=== PATIENT | female | born 1950 | race Caucasian/White ===

== ENCOUNTER → 2017-07-06 | Outpatient (CLI) | payer MEDICARE, OTHER ==
--- NOTE | 2017-07-06 10:28 | REPMRS ---
Patient History The patient states she had a clinical breast exam in 2015. Patient is postmenopausal. No known family history of cancer. Took hormonal contraceptives for 1 month. Took unspecified hormones for 10 years. Digital Mammo Screening Bilat: July 06, 2017 - Exam #: [id number] Bilateral CC and MLO view(s) were taken. Technologist: Susie Rodríguez, Technologist Prior study comparison: July 05, 2016, bilateral digital mammo screening bilat performed at [facility]. July 04, 2015, digital bilateral screening mammo, performed at [facility]. FINDINGS: There are scattered fibroglandular densities. There has been no change in the appearance of the mammogram from the prior studies. There is a mild amount of residual fibroglandular tissue which is fairly symmetric. There is no interval development of dominant mass, architectural distortion, or clustered microcalcification suggestive of malignancy. ASSESSMENT: BI-RADS/ACR category 1 mammogram. Negative. Recommendation Routine screening mammogram in 1 year (for women over age 40). This mammogram was interpreted with the aid of an FDA-approved computer-aided dectection system. Electronically Signed By: Michael Case MD 07/06/17 1786
== END ==
LOC: M RAD 09:21
PROVIDERS: ATTEND Family Medicine
DX: Z12.31 Encounter for screening mammogram for malignant neoplasm of breast (principal); Z92.0 Personal history of contraception

== ENCOUNTER → 2017-10-24 | Outpatient (CLI) | payer MEDICARE, OTHER ==
[2017-10-24 13:22] LABS: MEAN CORPUSCULAR HEMOGLOBIN 30.2 pg (27.0-33.0); MEAN CORPUSCULAR HGB CONC 31.4 g/dl (32.0-36.5); MEAN CORPUSCULAR VOLUME 96.3 fl (80.0-96.0); PLATELET COUNT, AUTOMATED 261 10^3/uL (150-450); RED CELL DISTRIBUTION WIDTH 13.1 % (11.5-14.5); WHITE BLOOD COUNT 5.4 10^3/uL (4.0-10.0)
[2017-10-24 13:51] LABS: ALBUMIN 3.7 GM/DL (3.2-5.2); ALBUMIN/GLOBULIN RATIO 1.12 (1.00-1.93); ALKALINE PHOSPHATASE 60 U/L (45-117); ALT/SGPT 22 U/L (12-78); ANION GAP 7 MEQ/L (8-16); AST/SGOT 18 U/L (7-37); BILIRUBIN,TOTAL 0.4 MG/DL (0.2-1.0); BLOOD UREA NITROGEN 13 MG/DL (7-18); CALCIUM LEVEL 9.4 MG/DL (8.8-10.2); CARBON DIOXIDE LEVEL 30 MEQ/L (21-32); CHLORIDE LEVEL 106 MEQ/L (98-107); CHOLESTEROL LEVEL 188 MG/DL (<200); CREATININE FOR GFR 0.79 MG/DL (0.55-1.02); FREE T4 1.05 NG/DL (0.76-1.46); GLOMERULAR FILTRATION RATE > 60.0 (>45); GLUCOSE, FASTING 84 MG/DL (80-110); POTASSIUM SERUM 4.4 MEQ/L (3.5-5.1); SODIUM LEVEL 143 MEQ/L (136-145); TRIGLYCERIDES LEVEL 128 MG/DL (<150)
== END ==
LOC: M WUC 08:49
PROVIDERS: ATTEND Family Medicine
DX: K22.70 Barrett's esophagus without dysplasia (principal); E78.2 Mixed hyperlipidemia; E04.9 Nontoxic goiter, unspecified

== ENCOUNTER → 2018-01-24 | Outpatient (CLI) | payer MEDICARE, OTHER ==
[2018-01-24 14:38] LABS: ALBUMIN 3.9 GM/DL (3.2-5.2); ALKALINE PHOSPHATASE 64 U/L (45-117); ALT/SGPT 19 U/L (12-78); ANION GAP 7 MEQ/L (8-16); AST/SGOT 16 U/L (7-37); BILIRUBIN,TOTAL 0.5 MG/DL (0.2-1.0); BLOOD UREA NITROGEN 16 MG/DL (7-18); CALCIUM LEVEL 9.3 MG/DL (8.8-10.2); CARBON DIOXIDE LEVEL 31 MEQ/L (21-32); CHLORIDE LEVEL 106 MEQ/L (98-107); CHOLESTEROL LEVEL 133 MG/DL (<200); CHOLESTEROL RISK RATIO 2.829 (<5); CREATININE FOR GFR 0.88 MG/DL (0.55-1.30); GLOMERULAR FILTRATION RATE > 60.0 (>45); GLUCOSE, FASTING 80 MG/DL (70-100); HDL CHOLESTEROL 47 MG/DL (>40); LDL CHOLESTEROL 67.2 MG/DL (<100); NON-HDL-C 86 MG/DL; POTASSIUM SERUM 4.3 MEQ/L (3.5-5.1); SODIUM LEVEL 144 MEQ/L (136-145); TOTAL PROTEIN 6.9 GM/DL (6.4-8.2); TRIGLYCERIDES LEVEL 94 MG/DL (<150)
== END ==
LOC: M SMT 08:36
DX: E78.2 Mixed hyperlipidemia (principal)
CPT/HCPCS: 80053

== ENCOUNTER 2018-03-08 08:18 | Day surgery (SDC) | payer MEDICARE, OTHER ==
[~2018-03-08 08:18] MED LIST: LIDOCAINE 2% MDV 20 ML VIAL As Ordered; PROPOFOL 200 MG/20 ML VIAL As Ordered
[2018-03-08] MEDS: NS 1,000 ML IV (08:30)
== END 2018-03-08 10:31 | disposition home or self-care (01) ==
LOC: M OPP 08:18
DX: Z12.11 Encounter for screening for malignant neoplasm of colon (principal); Z86.010 Personal history of colon polyps; K64.0 First degree hemorrhoids; R12 Heartburn; K22.70 Barrett's esophagus without dysplasia; K22.8 Other specified diseases of esophagus; E78.5 Hyperlipidemia, unspecified; K57.30 Diverticulosis of large intestine without perforation or abscess without bleeding; K21.9 Gastro-esophageal reflux disease without esophagitis; G43.909 Migraine, unspecified, not intractable, without status migrainosus; R42 Dizziness and giddiness; Z88.5 Allergy status to narcotic agent; Z88.2 Allergy status to sulfonamides; Z88.0 Allergy status to penicillin; Z79.899 Other long term (current) drug therapy
CPT/HCPCS: G0105

== ENCOUNTER → 2018-07-07 | Outpatient (CLI) | payer MEDICARE, OTHER | LOC: M RAD 09:08 | DX: Z12.31 Encounter for screening mammogram for malignant neoplasm of breast (principal) | CPT/HCPCS: 77067 ==

== ENCOUNTER → 2018-11-27 | Outpatient (CLI) | payer MEDICARE, OTHER ==
[~2018-11-27] MED LIST changes: +ATOR1TAB21 PO; +CALC1TAB21 PO; +DERM0.014 AD; +FLUTISP; +IMIT50TA PO; -LIDOCAINE 2% MDV 20 ML VIAL As Ordered; +MUCI600T31 PO; +OMEP40CA2 PO; -PROPOFOL 200 MG/20 ML VIAL As Ordered; +VITA100067 PO
[2018-11-27 12:57] LABS: HEMATOCRIT 44.8 % (36.0-47.0); HEMOGLOBIN 14.2 g/dl (12.0-15.5); MEAN CORPUSCULAR HGB CONC 31.7 g/dl (32.0-36.5); MEAN CORPUSCULAR VOLUME 94.7 fl (80.0-96.0); PLATELET COUNT, AUTOMATED 264 10^3/uL (150-450); RED BLOOD COUNT 4.73 10^6/uL (4.00-5.40); WHITE BLOOD COUNT 5.9 10^3/uL (4.0-10.0)
[2018-11-27 13:29] LABS: ALBUMIN 3.7 GM/DL (3.2-5.2); ALT/SGPT 24 U/L (12-78); BILIRUBIN,TOTAL 0.5 MG/DL (0.2-1.0); BLOOD UREA NITROGEN 14 MG/DL (7-18); CALCIUM LEVEL 9.7 MG/DL (8.8-10.2); CARBON DIOXIDE LEVEL 29 MEQ/L (21-32); CHLORIDE LEVEL 104 MEQ/L (98-107); CHOLESTEROL LEVEL 203 MG/DL (<200); CREATININE FOR GFR 0.78 MG/DL (0.55-1.30); FREE T4 1.02 NG/DL (0.76-1.46); GLOMERULAR FILTRATION RATE > 60.0 (>45); GLUCOSE, FASTING 84 MG/DL (70-100); HDL CHOLESTEROL 51 MG/DL (>40); LDL CHOLESTEROL 126 MG/DL (<100); NON-HDL-C 152 MG/DL; SODIUM LEVEL 143 MEQ/L (136-145); THYROID STIMULATING HORMONE 0.988 uIU/ML (0.358-3.740); TOTAL PROTEIN 7.4 GM/DL (6.4-8.2); TRIGLYCERIDES LEVEL 128 MG/DL (<150)
== END ==
LOC: M WUC 09:55
PROVIDERS: ATTEND Family Medicine
DX: K22.70 Barrett's esophagus without dysplasia (principal); E78.2 Mixed hyperlipidemia; E04.9 Nontoxic goiter, unspecified

== ENCOUNTER → 2019-07-11 | Outpatient (CLI) | payer MEDICARE, OTHER ==
--- NOTE | 2019-07-11 12:10 | REP ---
BILATERAL SCREENING DIGITAL MAMMOGRAM WITH 3D TOMOSYNTHESIS: There are no palpable abnormalities or other breast complaints. The the patient states she is not had a clinical breast examination in over a year. The Tyrer-Cuzick score is: 4.1% . Comparison is 07/03/2014. The breasts are almost entirely fatty.. There is no dominant mass, micro calcific cluster or architectural distortion that would indicate malignancy. There are no additional findings on 3D tomosynthesiss. There is no change from the prior study. Impression: BIRADS/ACR category 1 mammogram. Negative. Recommendation: Routine annual screening mammography. This mammogram was interpreted with the aid of a FDA approved computer-aided detection system. A. Negative mammogram reports should not delay biopsy if a dominant or clinically suspicious mass is present. B. Not all breast cancers are identified by mammography or tomosynthesis. C. Adenosis and dense breasts may obscure an underlying neoplasm. Patient letter M1. Electronically Signed by Michael Garner MD 07/11/2019 10:04 A
== END ==
LOC: M RAD 09:08
PROVIDERS: ATTEND Family Medicine
DX: Z12.31 Encounter for screening mammogram for malignant neoplasm of breast (principal)

== ENCOUNTER 2019-11-29 13:27 | Emergency (ER) | payer MEDICARE, OTHER ==
[~2019-11-29] VITALS: Ht 162.6 cm; Wt 76.4 kg
[~2019-11-29 13:27] MED LIST changes: -OMEP40CA2 PO; +OMEP40CA97 PO
[2019-11-29] MEDS ORDERED: IBUPROFEN 600 MG TAB PO ONE (14:00)
--- NOTE | 2019-11-29 14:42 | REP ---
Sacrum and coccyx: Three views. History: Injury in a fall. Findings: AP, tube angled, and lateral views are obtained. Image quality is inhibited some degree by patient body habitus. No sacral or coccygeal fracture or displacement is seen. The presacral soft tissues do not appear to be abnormally widened. SI joints are unremarkable. Impression: No fracture seen. Electronically Signed by Tirso Oliva MD 11/29/2019 02:33 P
--- NOTE | 2019-11-29 14:52 | REP ---
Left knee: Five views. History: Injury in a fall. Findings: Five views of the left knee demonstrate mild inferior and superior pole articular spurring of the patella. There is subcortical cyst formation at the upper pole of the patella at the cortical surface. No fracture or subluxation is seen. Impression: There is subcortical cyst formation in the articular margin of the upper pole the patella. Patellar spurring. No fracture or subluxation is seen. Electronically Signed by Tirso Oliva MD 11/29/2019 02:43 P
--- NOTE | 2019-11-29 14:55 | REP ---
LEFT ELBOW SERIES: Four views. HISTORY: Injury in a fall. FINDINGS: Four views of the left elbow demonstrate normal bones, joints, and soft tissues. No fracture or subluxation is seen. IMPRESSION: Negative left elbow radiographs. Electronically Signed by Tirso Oliva MD 11/29/2019 03:13 P
[2019-11-29 14:57] VITALS: BP 130/85
== END 2019-11-29 15:03 | disposition home or self-care (01) ==
LOC: M ED 13:27
DX: S30.0XXA Contusion of lower back and pelvis, initial encounter (principal); S50.02XA Contusion of left elbow, initial encounter; S80.02XA Contusion of left knee, initial encounter; W00.0XXA Fall on same level due to ice and snow, initial encounter; Y92.238 Other place in hospital as the place of occurrence of the external cause; K21.9 Gastro-esophageal reflux disease without esophagitis; Z79.899 Other long term (current) drug therapy; Z88.0 Allergy status to penicillin; Z88.2 Allergy status to sulfonamides; Z88.8 Allergy status to other drugs, medicaments and biological substances

== ENCOUNTER → 2019-12-04 | Outpatient (CLI) | payer MEDICARE, OTHER ==
[2019-12-04 08:43] LABS: HEMATOCRIT 40.6 % (36.0-47.0); MEAN CORPUSCULAR HEMOGLOBIN 27.2 pg (27.0-33.0); MEAN CORPUSCULAR HGB CONC 29.6 g/dl (32.0-36.5); MEAN CORPUSCULAR VOLUME 92.1 fl (80.0-96.0); PLATELET COUNT, AUTOMATED 319 10^3/uL (150-450); RED BLOOD COUNT 4.41 10^6/uL (4.00-5.40); WHITE BLOOD COUNT 5.4 10^3/uL (4.0-10.0)
[2019-12-04 09:13] LABS: ALBUMIN 3.8 GM/DL (3.2-5.2); ALT/SGPT 22 U/L (12-78); BILIRUBIN,TOTAL 0.4 MG/DL (0.2-1.0); BLOOD UREA NITROGEN 14 MG/DL (7-18); CALCIUM LEVEL 9.3 MG/DL (8.8-10.2); CARBON DIOXIDE LEVEL 33 MEQ/L (21-32); CHLORIDE LEVEL 108 MEQ/L (98-107); CHOLESTEROL LEVEL 166 MG/DL (<200); CHOLESTEROL RISK RATIO 3.192 (<5); CREATININE FOR GFR 0.91 MG/DL (0.55-1.30); FREE T4 1.39 NG/DL (0.76-1.46); GLOMERULAR FILTRATION RATE > 60.0 (>39); GLUCOSE, FASTING 79 MG/DL (70-100); HDL CHOLESTEROL 52 MG/DL (>40); LDL CHOLESTEROL 98 MG/DL (<100); NON-HDL-C 114 MG/DL; POTASSIUM SERUM 4.2 MEQ/L (3.5-5.1); SODIUM LEVEL 143 MEQ/L (136-145); TRIGLYCERIDES LEVEL 80 MG/DL (<150)
== END ==
LOC: M LAB 07:53
PROVIDERS: ATTEND Family Medicine
DX: E78.2 Mixed hyperlipidemia (principal)

== ENCOUNTER → 2020-01-16 | Outpatient (CLI) | payer MEDICARE, OTHER ==
--- NOTE | 2020-01-16 19:40 | REP ---
Left femur: Two views. History: Sciatica. Findings: AP and lateral views of the mid and distal femur demonstrate mild patellofemoral spurring. There is a fabella at the knee. Bones, joints and soft tissues are otherwise unremarkable. Impression: No acute bony abnormality. Mild patellar spurring. Electronically Signed by Tirso Oliva MD 01/16/2020 07:59 P
--- NOTE | 2020-01-16 19:41 | REP ---
Left hip: Two views. History: Sciatica. Findings: AP and frog-leg views of the left hip demonstrate smooth rounded femoral head and intact hip joint space. There is mild chondrocalcinosis at the superior aspect of the joint. Periarticular soft tissues are unremarkable. Left hemipelvis appears intact. Impression: Mild chondrocalcinosis. No acute bony abnormality. Electronically Signed by Tirso Oliva MD 01/16/2020 07:59 P
--- NOTE | 2020-01-16 19:42 | REP ---
AP pelvis: Single view. History: Left-sided sciatica. Findings: The bony pelvic ring is intact. Sacrum and SI joints appear intact. Symphysis pubis is unremarkable. Femoral heads are smooth and rounded. Visualized bowel gas pattern is normal. Impression: Negative AP view of the pelvis. Electronically Signed by Tirso Oliva MD 01/16/2020 07:59 P
--- NOTE | 2020-01-16 19:43 | REP ---
Lumbar spine series: Five views. History: Left-sided sciatica. Findings: Lumbar vertebral body heights are preserved. Alignment is normal. There is degenerative disc narrowing at L4-5, L3-4, and L2-3. Anterior osteophyte formation is seen. Some sclerosis is seen in the endplates of L4-5. Pedicles and posterior elements are intact. Psoas margins are symmetric. Sacrum and SI joints are unremarkable. Impression: Degenerative disc disease at the L3-4, L4-5 and to some degree at L2-3. No acute bony abnormality. Electronically Signed by Tirso Oliva MD 01/16/2020 07:59 P
== END ==
LOC: M ADAMS 17:32
PROVIDERS: ATTEND Family Medicine
DX: M11.252 Other chondrocalcinosis, left hip (principal); M51.36 Other intervertebral disc degeneration, lumbar region; M54.32 Sciatica, left side

== ENCOUNTER → 2020-04-04 | Outpatient (CLI) | payer MEDICARE, OTHER ==
--- NOTE | 2020-04-04 15:29 | REP ---
MRI LUMBAR SPINE WITHOUT CONTRAST: HISTORY: Lumbar back pain with radiculopathy left lower extremity. Comparison radiographs January 16, 2020. No comparison MRI study. TECHNIQUE: Sagittal and axial T1- and T2-weighted scans are acquired in the usual fashion with and without fat saturation. Sequences include spin echo, turbo spin-echo, and STIR imaging sequences. MRI FINDINGS: Lumbar vertebral body heights are preserved and alignment is normal. There is no evidence of spondylolysis or spondylolisthesis. No bony destructive lesion or fracture is seen. The tip of the conus medullaris is normal in position and appearance at L1. No extra vertebral abnormality is observed. Axial and sagittal images taken at L5-S1 demonstrate facet and ligamentum flavum hypertrophy bilaterally. There is a broad-based left posterior focal disc protrusion which extends caudally compressing the left ventral margin of the thecal sac in the left S1 root. It extends towards the S1 lateral recess. No central canal stenosis is seen. No foraminal narrowing is seen. At L4-5, there is diffuse disc bulging. Ligamentum flavum and mild facet hypertrophy are present bilaterally. Canal size is borderline at L4-5 and has a somewhat triangular shape on axial cross-sectional images. Diffuse disc bulging includes the foraminal segments but the nerve roots exit the neural foramina bilaterally surrounded by epidural fat. At L3-4, there is degenerative disc narrowing and desiccation. Mild diffuse disc bulging. There is mild ligamentum flavum and facet hypertrophy. No significant central canal narrowing is seen. No foraminal narrowing is noted. At L2-3, there is diffuse disc bulging indenting the ventral margin of the thecal sac. No spinal stenosis seen. No neural foraminal narrowing noted. The L1-2 disc level is unremarkable. IMPRESSION: Degenerative spondylosis changes throughout the lumbar disc levels. Multilevel facet hypertrophy and ligamentum flavum hypertrophy. Left posterior disc protrusion with caudal extension at L5-S1. Electronically Signed by Tirso Oliva MD 04/04/2020 04:17 P
== END ==
LOC: M RAD 12:56
PROVIDERS: ATTEND Physician Assistant
DX: M54.16 Radiculopathy, lumbar region (principal)

== ENCOUNTER → 2020-05-08 | Outpatient (CLI) | payer MEDICARE, OTHER ==
[~2020-05-08] MED LIST changes: +ALEV220T22 PO; +CALCTAB38 PO; +GABA-843 PO; +MECL12.589 PO; +MULTCAP PO; +NEUR100C PO; +PERC5TAB12 PO; +VITAD1000T PO
--- NOTE | 2020-05-09 17:19 | ECGEPIP ---
[facility] Test Date: 2020-05-08 Pat Name: TARIQ CANTU Department: Room: - Gender: Female Registered Representative: MUSA : 1950 Requested By: NURY EVNCES Order Number: [id number] Reading MD: Emerson Rasheed Measurements Intervals [place] Rate: 57 P: 49 GA: 173 QRS: 9 QRSD: 92 T: 31 QT: 394 QTc: 385 Interpretive Statements SINUS BRADYCARDIA No prior tracing in the system Electronically Signed on 05-09-2020 17:19:25 EDT by Emerson Rasheed
== END ==
LOC: M EKG 14:18
PROVIDERS: ATTEND Anesthesiology
DX: K21.9 Gastro-esophageal reflux disease without esophagitis (principal)

== ENCOUNTER → 2020-05-10 | Outpatient (CLI) | payer MEDICARE, OTHER | LOC: M LABSMTC 10:50 | PROVIDERS: ATTEND Anesthesiology | DX: Z11.59 Encounter for screening for other viral diseases (principal); Z03.89 Encounter for observation for other suspected diseases and conditions ruled out | CPT/HCPCS: C9803; U0003 ==

== ENCOUNTER 2020-05-13 13:30 | Day surgery (SDC) | payer MEDICARE, OTHER ==
[~2020-05-13] VITALS: Ht 162.6 cm; Wt 77.1 kg
[~2020-05-13 13:30] MED LIST changes: +LIDOCAINE 1% MDV 20ML VIAL SQ PRN; +LR 1,000 ML IV ONE; -PERC5TAB12 PO; +PERCOCET 5MG/325MG TAB PO ONE
[2020-05-13] MEDS ORDERED: fentaNYL 100 MCG/2 ML INJECTION (J3010) As Ordered ONE (14:46)
[2020-05-13] MEDS ORDERED: MIDAZOLAM INJ 2MG/2ML VIAL (J2250 PER 1MG) As Ordered ONE (14:47)
[2020-05-13] MEDS ORDERED: fentaNYL 250 MCG/5 ML INJECTION (J3010) As Ordered ONE (14:47)
[2020-05-13] MEDS ORDERED: LIDOCAINE 2% 100MG/5ML SDV (FOR ANES.) As Ordered ONE (14:47)
[2020-05-13] MEDS ORDERED: ROCURONIUM BROMIDE 50 MG/5 ML VIAL As Ordered ONE (14:47)
[2020-05-13] MEDS ORDERED: propofoL 200 MG/20 ML VIAL As Ordered ONE (14:47)
[2020-05-13] MEDS ORDERED: ONDANSETRON 4MG/2ML VIAL As Ordered ONE ×2 (14:52→17:17)
[2020-05-13] MEDS ORDERED: dexameTHASONE 4 MG/ML 1ML VIAL (J1100 PER 1MG) As Ordered ONE (14:52)
[2020-05-13] MEDS ORDERED: THROMBIN SOLN 20,000 UNITS KIT As Ordered ONE (15:03)
[2020-05-13] MEDS ORDERED: BUPIVACAINE LIPOSOME/PF 1.3% 20ML VIAL (13.3MG/ML)(EXPAREL)(C9290 PER1MG) As Ordered ONE (15:03)
[2020-05-13] MEDS ORDERED: BUPIVACAINE HCL 0.25% 30ML VIAL As Ordered ONE (15:03)
[2020-05-13] MEDS ORDERED: BUPIVACAINE HCL 0.25% 10ML VIAL As Ordered ONE (15:03)
[2020-05-13] MEDS ORDERED: BACITRACIN PWD 50,000 UNITS VIAL As Ordered ONE (15:04)
[2020-05-13] MEDS ORDERED: BUPIVACAINE/EPIN 0.5% 30 ML VIAL As Ordered ONE (15:06)
[2020-05-13] MEDS ORDERED: TRANEXAMIC ACID 100 MG/ML 10ML VIAL As Ordered ONE (15:27)
[2020-05-13] MEDS ORDERED: BUPIVACAINE/EPIN 0.25% 30 ML VIAL As Ordered ONE (15:27)
[2020-05-13] MEDS ORDERED: EPINEPHrine INJ 1 MG/ML 1ML AMP As Ordered ONE (15:28)
[2020-05-13] MEDS ORDERED: CLINDAMYCIN 600 MG/50 ML PREMIX BAG As Ordered ONE (16:54)
[2020-05-13] MEDS ORDERED: HYDROmorphone HCL 2 MG/ML 1ML VIAL (J1170) As Ordered ONE (17:17)
[2020-05-13] MEDS ORDERED: SUGAMMADEX SODIUM 500 MG/5 ML VIAL (BRIDION) As Ordered ONE ×2 (17:18→17:19)
[2020-05-13] MEDS ORDERED: METOCLOPRAMIDE INJ 10MG/2ML VIAL (J2765 PER 1) As Ordered ONE (17:18)
[2020-05-13] MEDS ORDERED: ACETAMINOPHEN 1000MG 100ML IV BTL (OFIRMEV) (J0131 PER 10MG) As Ordered ONE (17:19)
[2020-05-13] MEDS ORDERED: ONDANSETRON 4MG/2ML VIAL IV PRN ×2 (19:00→19:15)
[2020-05-13] MEDS ORDERED: HYDROMORPHONE HCL 0.5 MG/ 0.5 ML SYRINGE (J1170 PER 1) IV PRN ×2 (19:00)
[2020-05-13] MEDS ORDERED: fentaNYL 100 MCG/2 ML INJECTION (J3010) IV PRN (19:00)
[2020-05-13] MEDS ORDERED: LR 1,000 ML IV SCH ×2 (19:00)
[2020-05-13] MEDS ORDERED: PERCOCET 5MG/325MG TAB PO PRN ×2 (19:00→19:15)
[2020-05-13] MEDS ORDERED: PROMETHAZINE INJ 25 MG/ML VIAL (J2550) IV PRN (19:15)
--- NOTE | 2020-05-13 19:58 | REP ---
Clinical: Disc herniation. Technique: Intraoperative cross-table lateral views of the lumbar spine. Findings: Final image demonstrates probe via posterior approach at the L5-S1 level. Electronically Signed by Wayne Rothman MD 05/13/2020 07:49 P
[2020-05-13 20:07] VITALS: BP 128/70
[2020-05-13 20:30] VITALS: BP 127/69
[2020-05-13 21:00] VITALS: BP 127/68
[2020-05-13 22:00] VITALS: BP 124/69
[2020-05-13 23:00] VITALS: BP 125/67
[2020-05-13] MEDS ORDERED: CLINDAMYCIN 600 MG in IV 1 EA IV ONE (23:00)
[2020-05-13] MEDS: GABAPENTIN 300 MG CAP PO SCH (23:13)
[2020-05-14] VITALS: BP 121/65
[2020-05-14 01:00] VITALS: BP 118/64
[2020-05-14 05:00] VITALS: BP 116/63
[2020-05-14] MEDS ORDERED: PERC5TAB12 PO (07:01)
[2020-05-14] MEDS: GABAPENTIN 300 MG CAP PO SCH (08:23)
[2020-05-14] MEDS ORDERED: OMEPRAZOLE 20 MG CAP PO SCH (09:00)
[2020-05-14] MEDS ORDERED: METAMUCIL (PSYLLIUM) PACKET PO SCH (09:00)
--- NOTE | 2020-05-15 17:24 | RO ---
DATE OF SURGERY: 05/13/2020 PREOPERATIVE DIAGNOSES: Left lower extremity radiculopathy. POSTOPERATIVE DIAGNOSIS: Left lower extremity radiculopathy. PROCEDURE PERFORMED: Microdiscectomy left L5-S1. SURGEON: Alberto Lock MD TUFTER HAND: Hilaria Felix PA-C Estimated blood loss less than 50 mL, replaced with crystalloid. No complications. INDICATIONS: Left lower extremity radiculopathy. MRI evidence of a disc extrusion producing spinal stenosis at L5-S1 on the left. The patient has elected for operative intervention. Consent reviewed in detail including garcia discussion of the pathology involved, the procedure proposed, alternatives including doing nothing and risks including but not limited to pain, failure, infection, bleeding, blood loss, incomplete relief of symptoms, need for additional surgery and other issues. The patient agrees to proceed. OPERATIVE COURSE: Identified in holding area. Site and side verified. Brought to the operating room. Anesthesia was administered. She was positioned on the Paul frame, which was elevated. Axillary rolls were utilized. Knees slightly flexed. Once I and the laboratory supervisor were comfortable with the patient's positioning, she was then sterilely prepped and draped in the usual fashion for exposure of the lumbar spine. Ms. Felix stood on the patient's right. Melissa stood on the patient's left. Incision was outlined with a marking pen based on bony landmarks, infiltrated with 0.25% Marcaine with epinephrine. A 5 cm incision was made at L5-S1, developed down through subcuticular tissues, which were quite well developed in this patient to the posterior lumbar fascia. Posterior lumbar fascia was reflected off of the spinous processes to allow adequate exposure. I divot was drilled in the posterior lamina. Cross-table lateral x-ray was taken. We adjusted our dissection inferiorly. Drilled an additional lamina divot at L5. Another cross-table lateral verified L5. Dissection continued further exposing L5-S1. Shadow-Line retractors were placed exposing the L5-S1 interspace. Next, Leksell's were utilized to remove posterior lamina of 5. Next, at this stage, my loupe magnification and headlamp were removed. The operating microscope was sterilely draped, brought in for additional portion of the procedure. Ms. Felix looked through oculars on the right, I through oculars on the left. The scope facilitated safe use of the high-speed bur in participation of Ms. Felix. We utilized the high-speed bur to implement the left unilateral laminectomy of the L5 level extending superiorly to the bare area of 6 inferiorly to the bare area of S1, elevated the ligamentum flavum using curved curettes, removed it using #2 and 3 Kerrison's exposing the thecal sac. Subarticular recess was decompressed. I utilized bipolar cautery for hemostasis. I swept the traversing S1 nerve root medially exposing the bulging disc complex. Posterior longitudinal ligament and annulus were opened. Disc material spontaneously extruded. I utilized a Chambers pituitary to remove additional friable disc material and explored for additional friable disc material using a Mcmanus-Ramon as well as the Chambers. No additional disc material was able to be obtained. We irrigated including irrigation with tranexamic acid (TXA). I did instill Exparel local anesthetic solution in the subcuticular and fascial tissues for postoperative pain control. We removed retractors. Inspected for bleeding. No active bleeding. We irrigated using saline solution. We closed posterior lumbar fascia using interrupted stitch, deep dermis with interrupted stitch. Prineo dressing utilized on skin. Patient was log-rolled to hospital bed, moved to recovery room in good condition voicing improvement in the left lower extremity symptoms in the recovery room. For further details please refer to medical record. Ms. Hilaria Felix participated in the entirety of the case in the capacity of exceptional children teacher assistant.
== END 2020-05-14 09:25 | disposition home or self-care (01) ==
LOC: M SDC 13:30 → M MS5PR 20:10 → M SDC 05-14 09:25
PROVIDERS: ATTEND Orthopaedic Surgery
DX: M51.16 Intervertebral disc disorders with radiculopathy, lumbar region (principal); K21.9 Gastro-esophageal reflux disease without esophagitis; G43.909 Migraine, unspecified, not intractable, without status migrainosus; Z79.899 Other long term (current) drug therapy; Z88.0 Allergy status to penicillin; Z88.2 Allergy status to sulfonamides; Z88.8 Allergy status to other drugs, medicaments and biological substances
CPT/HCPCS: 36415; 63030; 76000; 86850; 86900; 86901; 88304; 96361; 96365; C1763; C9290; J0131; J0171; J1100; J1170; J2250; J2405; J2765; J3010

== ENCOUNTER → 2020-07-31 | Outpatient (CLI) | payer MEDICARE, OTHER ==
[~2020-07-31] MED LIST changes: +D31000TA2 PO; -LIDOCAINE 1% MDV 20ML VIAL SQ PRN; -LR 1,000 ML IV ONE; +PERC5TAB12 PO; -PERCOCET 5MG/325MG TAB PO ONE; -VITAD1000T PO
--- NOTE | 2020-08-01 08:41 | REPMRS ---
Patient History The patient states she has not had a clinical breast exam in over a year. No known family history of cancer. Took hormonal contraceptives for 1 month. Took estrogen for 10 years. Digital Woman Screen Mammo: July 31, 2020 - Exam #: [id number] Bilateral CC and MLO view(s) were taken. Technologist: Susie Rodríguez Technologist Prior study comparison: July 11, 2019, bilateral digital mammo screening bilat, performed at [facility]. July 07, 2018, bilateral digital mammo screening bilat, performed at [facility]. July 06, 2017, bilateral digital mammo screening bilat, performed at [facility]. FINDINGS: There are scattered fibroglandular densities. The Volpara volumetric breast density category is:B. There has been no change in the appearance of the mammogram from the prior studies. There is a mild amount of scattered fibroglandular density which is fairly symmetric. There is no interval development of dominant mass, architectural distortion, or grouped microcalcification suggestive of malignancy. 3-D tomosynthesis shows no additional findings. Assessment: BI-RADS/ACR category 1 mammogram. Negative Mammogram. Recommendation Routine screening mammogram of both breasts in 1 year (for women over age 40). This patient's Lifetime Breast Cancer Risk is estimated at 3.9 %. This mammogram was interpreted with the aid of an FDA-approved computer-aided dectection system. Electronically Signed By: Pino Oliva MD 08/01/20 0864
== END ==
LOC: M WHC 13:54
PROVIDERS: ATTEND Family Medicine
DX: Z12.31 Encounter for screening mammogram for malignant neoplasm of breast (principal)

== ENCOUNTER → 2020-11-05 | Outpatient (CLI) | payer MEDICARE, OTHER ==
[~2020-11-05] MED LIST changes: -MECL12.589 PO; +MECL12.590 PO
== END ==
LOC: M LABSMTC 12:55
PROVIDERS: ATTEND Family Medicine
DX: Z20.828 Contact with and (suspected) exposure to other viral communicable diseases (principal)

== ENCOUNTER → 2021-02-26 | Outpatient (REF) | payer MEDICARE, OTHER ==
[~2021-02-26] MED LIST changes: +GABA-282 PO; -GABA-843 PO; +MECL-136 PO; -MECL12.590 PO
[2021-02-26 12:54] LABS: HEMATOCRIT 46.1 % (36.0-47.0); MEAN CORPUSCULAR HEMOGLOBIN 29.9 pg (27.0-33.0); MEAN CORPUSCULAR HGB CONC 30.4 g/dl (32.0-36.5); MEAN CORPUSCULAR VOLUME 98.5 fl (80.0-96.0); PLATELET COUNT, AUTOMATED 248 10^3/uL (150-450); RED BLOOD COUNT 4.68 10^6/uL (4.00-5.40); WHITE BLOOD COUNT 5.5 10^3/uL (4.0-10.0)
[2021-02-26 15:29] LABS: ALT/SGPT 19 U/L (12-78); BILIRUBIN,TOTAL 0.4 MG/DL (0.2-1.0); BLOOD UREA NITROGEN 15 MG/DL (7-18); CALCIUM LEVEL 9.8 MG/DL (8.8-10.2); CARBON DIOXIDE LEVEL 33 MEQ/L (21-32); CHLORIDE LEVEL 107 MEQ/L (98-107); CHOLESTEROL LEVEL 210 MG/DL (<200); CREATININE FOR GFR 0.82 MG/DL (0.55-1.30); FREE T4 1.06 NG/DL (0.76-1.46); GLOMERULAR FILTRATION RATE > 60.0 (>39); GLUCOSE, FASTING 85 MG/DL (70-100); HDL CHOLESTEROL 58 MG/DL (>40); LDL CHOLESTEROL 127 MG/DL (<100); NON-HDL-C 152 MG/DL; POTASSIUM SERUM 4.4 MEQ/L (3.5-5.1); SODIUM LEVEL 142 MEQ/L (136-145); THYROID STIMULATING HORMONE 0.708 uIU/ML (0.358-3.740); TOTAL PROTEIN 7.1 GM/DL (6.4-8.2); TRIGLYCERIDES LEVEL 126 MG/DL (<150)
== END ==
LOC: M SFHCADAM 09:00
PROVIDERS: ATTEND Family Medicine
DX: K22.70 Barrett's esophagus without dysplasia (principal); E78.2 Mixed hyperlipidemia; E04.9 Nontoxic goiter, unspecified

== ENCOUNTER → 2021-08-14 | Outpatient (CLI) | payer MEDICARE ==
[~2021-08-14] MED LIST changes: +OMEP40CA4 PO; -OMEP40CA97 PO
--- NOTE | 2021-08-14 09:52 | REPMRS ---
Patient History The patient states she has not had a clinical breast exam in over a year. Patient is postmenopausal. No known family history of cancer. Took hormonal contraceptives for 1 month. Took estrogen for 10 years. Patient states no breast complaints today. Patient has signed MRS History Sheet. Digital Woman Screen Mammo: August 14, 2021 - Exam #: [id number] Bilateral CC and MLO view(s) were taken. Technologist: Dottie Ruiz, Rectangular Tank Cooper Prior study comparison: July 31, 2020, bilateral digital woman screen mammo performed at [facility]. July 11, 2019, bilateral digital mammo screening bilat, performed at [facility]. FINDINGS: There are scattered fibroglandular densities. Screening. Digital screening (2D) mammography was performed bilaterally in the CC and MLO projections. Additionally, breast tomosynthesis (3D mammography) was performed bilaterally in the CC and MLO projections. Todays exam was compared to the prior exam/exams. By history, the patient has no complaints of a palpable breast abnormality or other significant breast complaints. The breasts are unchanged in size and shape. There are no cheryl-soft tissue densities or spiculated masses. There is no internal architectural distortion. There are no suspicious cheryl-calcific clusters. Skin thickening or nipple retraction is not present. IMPRESSION: BI-RADS Category 2- Benign Findings. There is no evidence of malignant alteration of the breasts. Followup examination recommended in one year. The Volpara volumetric breast density category is B, there are scattered areas of fibroglandular densities. This mammogram was read with the assistance of [email or web address] [employer],an FDA approved computer aided detection system for mammography. The lifetime Tyrer-Cuzick score is 3.7 % Negative x-ray reports should not delay surgical consultation if a dominant or clinically suspicious mass is present. Not all breast cancers can be identified by mammography. Therefore, we recommend that you continue to perform regular breast self-examination and physical examination and then promptly contact your physician of any concerns or changes. Adenosis and dense breasts may obscure an underlying neoplasm. Assessment: BI-RADS/ACR category 2 mammogram. Benign Findings. Recommendation Routine screening mammogram of both breasts in 1 year. Electronically Signed By: Santana Ornelas DO 08/14/21 0993
== END ==
LOC: M WHC 08:53
PROVIDERS: ATTEND Family Medicine
DX: Z12.31 Encounter for screening mammogram for malignant neoplasm of breast (principal); Z78.0 Asymptomatic menopausal state

== ENCOUNTER → 2022-01-19 | Outpatient (REF) | payer MEDICARE ==
[~2022-01-19] MED LIST changes: -D31000TA2 PO; +VITA100093 PO
== END ==
LOC: M SFHCDERM 14:51
PROVIDERS: ATTEND Physician Assistant
DX: L57.0 Actinic keratosis (principal)

== ENCOUNTER → 2022-08-25 | Outpatient (CLI) | payer MEDICARE | LOC: M WHC 07:44 | PROVIDERS: ATTEND Family Medicine | DX: Z12.31 Encounter for screening mammogram for malignant neoplasm of breast (principal); Z13.820 Encounter for screening for osteoporosis; M85.851 Other specified disorders of bone density and structure, right thigh; M85.852 Other specified disorders of bone density and structure, left thigh ==

== ENCOUNTER → 2023-02-28 | Outpatient (CLI) | payer MEDICARE ==
[~2023-02-28] MED LIST changes: +FLUT50SP17; -FLUTISP
[2023-02-28 13:14] LABS: HEMOGLOBIN 13.1 g/dl (12.0-15.5); MEAN CORPUSCULAR HEMOGLOBIN 29.2 pg (27.0-33.0); MEAN CORPUSCULAR HGB CONC 30.5 g/dl (32.0-36.5); PLATELET COUNT, AUTOMATED 291 10^3/uL (150-450); RED BLOOD COUNT 4.48 10^6/uL (4.00-5.40); WHITE BLOOD COUNT 6.6 10^3/uL (4.0-10.0)
[2023-02-28 13:34] LABS: ALBUMIN 3.7 G/DL (3.2-5.2); ALKALINE PHOSPHATASE 73 U/L (46-116); ALT/SGPT 13 U/L (7.0-40); AST/SGOT 20 U/L (<34); BILIRUBIN,TOTAL 0.4 MG/DL (0.3-1.2); BLOOD UREA NITROGEN 14 MG/DL (9-23); CALCIUM LEVEL 9.5 MG/DL (8.3-10.6); CARBON DIOXIDE LEVEL 33 MMOL/L (20-31); CHLORIDE LEVEL 105 MMOL/L (98-107); CHOLESTEROL LEVEL 190 MG/DL (<200); CHOLESTEROL RISK RATIO 3.44 (<5); CREATININE FOR GFR 0.84 MG/DL (0.55-1.30); GLOMERULAR FILTRATION RATE > 60.0 (>39); GLUCOSE, FASTING 81 MG/DL (74-106); HDL CHOLESTEROL 55.1 MG/DL (>40); LDL CHOLESTEROL 114.1 MG/DL (<100); NON-HDL-C 134.9 MG/DL; POTASSIUM SERUM 4.2 MMOL/L (3.5-5.1); SODIUM LEVEL 141 MMOL/L (136-145); TOTAL PROTEIN 6.9 G/DL (5.7-8.2); TRIGLYCERIDES LEVEL 104 MG/DL (<150)
[2023-02-28 13:37] LABS: FREE T4 1.03 NG/DL (0.89-1.76); THYROID STIMULATING HORMONE 0.876 uIU/ML (0.55-4.78)
[2023-02-28 13:49] LABS: HEMOGLOBIN A1c 4.9 % (4.0-6.0)
== END ==
LOC: M WUC 10:04
PROVIDERS: ATTEND Family Medicine
DX: E78.2 Mixed hyperlipidemia (principal); E04.9 Nontoxic goiter, unspecified; K22.70 Barrett's esophagus without dysplasia; G43.709 Chronic migraine without aura, not intractable, without status migrainosus; Z79.899 Other long term (current) drug therapy

== ENCOUNTER → 2023-08-26 | Outpatient (CLI) | payer MEDICARE | LOC: M WHC 10:13 | PROVIDERS: ATTEND Family Medicine | DX: Z12.31 Encounter for screening mammogram for malignant neoplasm of breast (principal) ==

== ENCOUNTER → 2024-03-21 | Outpatient (CLI) | payer MEDICARE ==
[~2024-03-21] MED LIST changes: -FLUT50SP17; +FLUTISP
[2024-03-21 15:22] LABS: HEMOGLOBIN 13.7 g/dl (12.0-15.5); MEAN CORPUSCULAR HEMOGLOBIN 31.2 pg (27.0-33.0); MEAN CORPUSCULAR HGB CONC 31.9 g/dl (32.0-36.5); MEAN CORPUSCULAR VOLUME 97.9 fl (80.0-96.0); PLATELET COUNT, AUTOMATED 272 10^3/uL (150-450); RED BLOOD COUNT 4.39 10^6/uL (4.00-5.40); WHITE BLOOD COUNT 5.8 10^3/uL (4.0-10.0)
[2024-03-21 15:23] LABS: HEMOGLOBIN A1c 4.8 % (4.0-6.0)
[2024-03-21 15:44] LABS: ALBUMIN 3.4 G/DL (3.2-5.2); ALKALINE PHOSPHATASE 67 U/L (46-116); ALT/SGPT 13 U/L (7.0-40); AST/SGOT 17 U/L (<34); BILIRUBIN,TOTAL 0.5 MG/DL (0.3-1.2); BLOOD UREA NITROGEN 13 MG/DL (9-23); CALCIUM LEVEL 9.9 MG/DL (8.3-10.6); CARBON DIOXIDE LEVEL 29 MMOL/L (20-31); CHLORIDE LEVEL 107 MMOL/L (98-107); CHOLESTEROL LEVEL 180 MG/DL (<200); CHOLESTEROL RISK RATIO 3.06 (<5); CREATININE FOR GFR 0.81 MG/DL (0.55-1.30); GLOMERULAR FILTRATION RATE > 60.0 (>39); GLUCOSE, FASTING 76 MG/DL (74-106); HDL CHOLESTEROL 58.7 MG/DL (>40); LDL CHOLESTEROL 106.5 MG/DL (<100); NON-HDL-C 121.3 MG/DL; POTASSIUM SERUM 4.6 MMOL/L (3.5-5.1); SODIUM LEVEL 140 MMOL/L (136-145); TOTAL PROTEIN 6.6 G/DL (5.7-8.2); TRIGLYCERIDES LEVEL 74 MG/DL (<150)
[2024-03-21 15:47] LABS: THYROID STIMULATING HORMONE 0.856 uIU/ML (0.55-4.78)
== END ==
LOC: M WUC 08:52
PROVIDERS: ATTEND Family Medicine
DX: K22.70 Barrett's esophagus without dysplasia (principal); E04.9 Nontoxic goiter, unspecified; E78.2 Mixed hyperlipidemia; Z13.1 Encounter for screening for diabetes mellitus

== ENCOUNTER → 2024-08-28 | Outpatient (CLI) | payer MEDICARE ==
[~2024-08-28] MED LIST changes: +GABA-1172 PO; -GABA-282 PO
== END ==
LOC: M WHC 10:47
PROVIDERS: ATTEND Family Medicine
DX: Z12.31 Encounter for screening mammogram for malignant neoplasm of breast (principal)

== ENCOUNTER → 2025-03-13 | Outpatient (CLI) | payer MEDICARE ==
[2025-03-13 14:29] LABS: HEMATOCRIT 43.6 % (36.0-47.0); HEMOGLOBIN 13.3 g/dl (12.0-15.5); MEAN CORPUSCULAR HEMOGLOBIN 30.3 pg (27.0-33.0); MEAN CORPUSCULAR HGB CONC 30.5 g/dl (32.0-36.5); MEAN CORPUSCULAR VOLUME 99.3 fl (80.0-96.0); PLATELET COUNT, AUTOMATED 272 10^3/uL (150-450); RED BLOOD COUNT 4.39 10^6/uL (4.00-5.40); WHITE BLOOD COUNT 5.6 10^3/uL (4.0-10.0)
[2025-03-13 14:30] LABS: C REACTIVE PROTEIN QUANTITATIV < 0.50 MG/DL (<1.0)
[2025-03-13 14:31] LABS: ALBUMIN 3.7 G/DL (3.2-5.2); ALKALINE PHOSPHATASE 65 U/L (35-104); ALT/SGPT 17 U/L (7.0-40); AST/SGOT 18 U/L (<34); BILIRUBIN,TOTAL 0.4 MG/DL (0.3-1.2); BLOOD UREA NITROGEN 15 MG/DL (9-23); CALCIUM LEVEL 9.7 MG/DL (8.3-10.6); CARBON DIOXIDE LEVEL 32 MMOL/L (20-31); CHLORIDE LEVEL 104 MMOL/L (98-107); CHOLESTEROL LEVEL 195 MG/DL (<200); CHOLESTEROL RISK RATIO 3.13 (<5); GLOMERULAR FILTRATION RATE 76.8 (>39); GLUCOSE, FASTING 86 MG/DL (74-106); HDL CHOLESTEROL 62.2 MG/DL (>40); LDL CHOLESTEROL 117.6 MG/DL (<100); NON-HDL-C 132.8 MG/DL; POTASSIUM SERUM 4.3 MMOL/L (3.5-5.1); SODIUM LEVEL 143 MMOL/L (136-145); TOTAL PROTEIN 6.5 G/DL (5.7-8.2); TRIGLYCERIDES LEVEL 76 MG/DL (<150)
[2025-03-13 14:32] LABS: FREE T4 1.17 NG/DL (0.89-1.76)
[2025-03-13 14:33] LABS: THYROID STIMULATING HORMONE 0.828 uIU/ML (0.55-4.78)
[2025-03-13 15:04] LABS: HEMOGLOBIN A1c 4.8 % (4.0-6.0)
== END ==
LOC: M WUC 08:02
PROVIDERS: ATTEND Family Medicine
DX: Z13.1 Encounter for screening for diabetes mellitus (principal); E78.2 Mixed hyperlipidemia; I73.9 Peripheral vascular disease, unspecified; E04.9 Nontoxic goiter, unspecified

== ENCOUNTER → 2025-08-30 | Outpatient (CLI) | payer MEDICARE | LOC: M WHC 08:33 | PROVIDERS: ATTEND Family Medicine | DX: Z12.31 Encounter for screening mammogram for malignant neoplasm of breast (principal) ==